=== PATIENT | female | born 2000 ===

== ENCOUNTER 2020-01-29 02:24 | Inpatient (IN) | payer OTHER ==
[2020-01-29] MEDS ORDERED: Sodium Chloride 0.9% 10 ML Syringe FLUSH PRN (22:13)
[2020-01-29] MEDS ORDERED: Nalbuphine 10 MG/1 ML Vial IVPUSH PRN (22:13)
[2020-01-29] MEDS ORDERED: Carboprost Tromethamine 250 MCG/1 ML Amp IM PRN (22:13)
[2020-01-29] MEDS ORDERED: Water For Irrigation,Sterile 1,000 ML Container IRR PRN (22:13)
[2020-01-29] MEDS ORDERED: Terbutaline 1 MG/ML SDV SUBCUT PRN (22:13)
[2020-01-29] MEDS ORDERED: Misoprostol 200 MCG Tab PO PRN (22:13)
[2020-01-29] MEDS ORDERED: Sodium Chloride 0.9% 2.5 ML Syringe FLUSH PRN (22:13)
[2020-01-29] MEDS ORDERED: Misoprostol 25 MCG (1/4 of 100 MCG) Tab VAG PRN (22:13)
[2020-01-29] MEDS ORDERED: Tranexamic Acid 1,000 MG in Sodium Chloride 0.9% 100 ML IV PRN (22:13)
[2020-01-29] MEDS ORDERED: Methylergonovine 0.2 MG/1 ML Amp IM PRN (22:13)
[2020-01-29] MEDS ORDERED: Lidocaine 1% 50 ML MDV INJECT PRN (22:13)
[2020-01-29] MEDS ORDERED: Sodium Chloride 0.9% 10 ML SDV IV PRN (22:13)
[2020-01-29] MEDS ORDERED: Oxytocin/0.9 % Sodium Chloride 30 UNIT/500 ML BAG IV SCH ×2 (22:15)
[2020-01-30] MEDS: Misoprostol 25 MCG (1/4 of 100 MCG) Tab VAG PRN ×2 (04:10→10:21)
[2020-01-30] MEDS: Butorphanol 1 MG/ML SDV IVPUSH PRN ×2 (08:51→13:44)
[2020-01-30] MEDS: Lactated Ringers 1,000 ML IV SCH ×2 (13:53→15:20)
[2020-01-30] MEDS ORDERED: fentaNYL 100 MCG/2 ML SDV ONE (14:06)
[2020-01-30] MEDS ORDERED: Ropivacaine HCl/PF 100 ML ONE (14:06)
--- NOTE | 2020-01-30 14:28 | PCM.PREANE ---
Preanesthetic Assessment - Anesthesia/Transfusion/Family Hx Anesthesia History: No Prior Anesthesia Family History of Anesthesia Reaction: No - Physical Assessment NPO Status Date: 01/30/20 NPO Status Time: 13:30 Height: 1.57 m Weight: 72.575 kg ASA Class: 1 - Lab Values: Laboratory Last Values WBC 14.37 K/uL (4.0-11.0) H 01/29/20 22:35 RBC 3.79 M/uL (4.30-5.90) L 01/29/20 22:35 Hgb 12.2 g/dL (12.0-16.0) 01/29/20 22:35 Hct 36.7 % (36.0-46.0) 01/29/20 22:35 MCV 96.8 fL (80.0-98.0) 01/29/20 22:35 MCH 32.2 pg (27.0-32.0) H 01/29/20 22:35 MCHC 33.2 g/dL (31.0-37.0) 01/29/20 22:35 RDW Std Deviation 46.9 fl (28.0-62.0) 01/29/20 22:35 RDW Coeff of Devante 13 % (11.0-15.0) 01/29/20 22:35 Plt Count 245 K/uL (150-400) 01/29/20 22:35 MPV 10.70 fL (7.40-12.00) 01/29/20 22:35 Nucleated RBC % 0.0 /100WBC 01/29/20 22:35 Nucleated RBCs # 0 K/uL 01/29/20 22:35 Blood Type A NEGATIVE 01/29/20 22:35 Antibody Screen NEGATIVE 01/29/20 22:35 - Allergies Allergies/Adverse Reactions: Allergies Allergy/AdvReac Type Severity Reaction Status Date / Time No Known Allergies Allergy Verified 01/29/20 22:22 - Acknowledgements Anesthesia Type Planned: Epidural Pt an Appropriate Candidate for the Planned Anesthesia: Yes Alternatives and Risks of Anesthesia Discussed w Pt/Guardian: Yes Pt/Guardian Understands and Agrees with Anesthesia Plan: Yes PreAnesthesia Questionnaire Psychiatric History: Reports: Anxiety - SUBSTANCE USE Smoking Status *Q: Former Smoker Recreational Drug Use History: No - HOME MEDS Home Medications: Home Meds Doxylamine Succinate [Unisom] PRN 01/29/20 [History] Vits #93/Iron Fum/FA [ Formula Tablet] 25 mg PO 01/29/20 [ History] - CURRENT (IN HOUSE) MEDS Current Meds: Current Medications Butorphanol Tartrate (Stadol) 1 mg IVPUSH Q1H PRN PRN Reason: Pain Last Admin: 01/30/20 13:44 Dose: 1 mg Carboprost Tromethamine (Hemabate Ds) 250 mcg IM ASDIRECTED PRN PRN Reason: Post Hemorrhage Lactated Ringer's (Ringers, Lactated) 1,000 mls @ 150 mls/hr IV ASDIRECTED [facility]OT[facility] Last Admin: 01/30/20 13:53 Dose: 999 mls/hr Oxytocin/Sodium Chloride (Oxytocin 30 Unit/500 Ml-Ns) 30 unit in 500 mls @ 999 mls/hr IV TITRATE [facility] Oxytocin/Sodium Chloride (Oxytocin 30 Unit/500 Ml-Ns) 30 unit in 500 mls @ 2 mls/hr IV TITRATE [facility]; Protocol Tranexamic Acid 1,000 mg/ (Sodium Chloride) 110 mls @ 660 mls/hr IV ONETIME PRN PRN Reason: Bleeding Lidocaine HCl (Xylocaine 1%) 50 ml INJECT ONETIME PRN PRN Reason: Laceration repair Methylergonovine Maleate (Methergine) 0.2 mg IM ASDIRECTED PRN PRN Reason: Post Hemorrhage Misoprostol (Cytotec) 200 mcg PO ONETIME PRN PRN Reason: Post Hemorrhage Misoprostol (Cytotec) 25 mcg VAG ONETIME PRN PRN Reason: Cervical Ripening Last Admin: 01/29/20 23:21 Dose: 25 mcg Misoprostol (Cytotec) 25 mcg VAG Q4H PRN PRN Reason: Cervical Ripening Last Admin: 01/30/20 10:21 Dose: 25 mcg Nalbuphine HCl (Nubain) 10 mg IVPUSH Q1H PRN PRN Reason: Pain (severe 7-10) Sodium Chloride (Saline Flush) 10 ml FLUSH ASDIRECTED PRN PRN Reason: Keep Vein Open Sodium Chloride (Saline Flush) 2.5 ml FLUSH ASDIRECTED PRN PRN Reason: Keep Vein Open Sodium Chloride (Normal Saline) 10 ml IV ASDIRECTED PRN PRN Reason: IV Use Sterile Water (Sterile Water For Irrigation) 1,000 ml IRR ASDIRECTED PRN PRN Reason: delivery Terbutaline Sulfate (Brethine) 0.25 mg SUBCUT ASDIRECTED PRN PRN Reason: Tacysystole Discontinued Medications Fentanyl (Sublimaze) Confirm Administered Dose 100 mcg .ROUTE .STK-MED ONE Stop: 01/30/20 14:07 Ropivacaine (Naropin 0.2%) Confirm Administered Dose 100 mls @ as directed .ROUTE .STK-MED ONE Stop: 01/30/20 14:07
--- NOTE | 2020-01-30 14:32 | PCM.PRNOTE ---
- Free Text/Narrative Note: Anes Note Patient requests epidural for L&D> Sitting position, sterile technique, midline approach. Level L3-L4 Chloraprep scrub to lumbar area. Sterile fenestrated drape applied. Epidural space easily achieved single attempt with ease using PAUL technique. PAUL at 3 cm. Cath threaded 5 cm with ease. Cath secured at 9 cm at skin using sterile clear adhesive dressing. Test 1415 3 cc 1.5% lido with epi negative. 1418 Load 10 cc 0.2% ropivicaine with 1 mcg cc fentanyl in slow divided doses. 1421 Pump started with 90 cc same solution. Rate is 8 cc hr with 6 cc q 20 min prn bolus. Carter well. Time with patient [id number]. Martinez Grady ALUM OPERATOR
[2020-01-30] MEDS ORDERED: Acetaminophen 500 MG Tab ONE (20:28)
[2020-01-30] MEDS: Ampicillin 2 GM AdvVial IV ONE (20:33)
[2020-01-30] MEDS: Sodium Chloride 0.9% 100 ML ONE (20:33)
[2020-01-30] MEDS ORDERED: Acetaminophen 500 MG Tab PO PRN (20:40)
[2020-01-30] MEDS ORDERED: Ampicillin 2 GM in Sodium Chloride 0.9% 100 ML IV SCH (21:00)
[2020-01-31] MEDS ORDERED: fentaNYL 100 MCG/2 ML SDV ONE (00:37)
[2020-01-31] MEDS ORDERED: Ropivacaine HCl/PF 100 ML ONE (00:37)
--- NOTE | 2020-01-31 00:46 | PCM.PRNOTE ---
- Free Text/Narrative Note: Anes NOte Epidural infusion is complete. A new 100 cc bag of same solution was placed. Rate remains at 8 cc hr with 6 cc q 20 min prn bolus. Time with patient [id number] Martinez Grady CRNA
[2020-01-31] MEDS: Sodium Chloride 0.9% 100 ML ONE (02:25)
[2020-01-31] MEDS: Ampicillin 2 GM AdvVial IV ONE (02:25)
[2020-01-31] MEDS ORDERED: Ampicillin 2 GM AdvVial IV ONE (02:40)
[2020-01-31] MEDS ORDERED: Sodium Chloride 0.9% 100 ML ONE (02:40)
[2020-01-31] MEDS ORDERED: Docusate Sodium 100 MG Cap PO PRN (03:59)
[2020-01-31] MEDS ORDERED: oxyCODONE 5 MG Tab PO PRN (03:59)
[2020-01-31] MEDS ORDERED: Lanolin 100% Cream 7 GM Tube TOP PRN (03:59)
[2020-01-31] MEDS ORDERED: Acetaminophen 500 MG Tab PO PRN ×2 (03:59)
[2020-01-31] MEDS ORDERED: Ibuprofen 400 MG Tab PO PRN (03:59)
[2020-01-31] MEDS ORDERED: Benzocaine/Menthol 20%-0.5% Spray 78 GM Cannister TOP PRN (03:59)
[2020-01-31] MEDS ORDERED: Witch Hazel Medicated Pads 40/Jar TOP PRN (03:59)
[2020-01-31] MEDS ORDERED: Bisacodyl 10 MG Supp RECTAL PRN (03:59)
--- NOTE | 2020-01-31 04:08 | PCM.DEL ---
L & D Note - General Info Date of Service: 01/31/20 - Delivery Note Labor: Augmented by Oxytocin, Induced by Oxytocin Cervical Ripening Method: Balloon Device, Misoprostil Delivery Outcome: Livebirth Infant Delivery Method: Spontaneous Vaginal Delivery-Single Presentation: Left Occiput Anterior (KIMBERLY) Nuchal Cord: None Anesthesia Type: Epidural Anesthetic: Lidocaine (Xylocaine) 1% Plain Local Anesthetic Volume: 3cc Amniotic Fluid Description: Clear Episiotomy Type: None Laceration: Labial (Bilateral labial ) Suture type: Other Suture size: 3-0 (Monocryl) Placenta: Intact Cord: 3 Vessels Estimated Blood Loss: 300 Score 1 min: 7 Score 5 min: 9 Delivery Comments (Free Text/Narrative):: Live male delivered at 224am , 7/9 weight 3180g - General Info Date of Service: 01/31/20 - Patient Data Vitals - Most Recent: Last Vital Signs Temp 38.4 C H 01/31/20 03:03 Pulse Resp BP Pulse Ox Weight - Most Recent: 72.575 kg Lab Results Last 24 Hours: Laboratory Results - last 24 hr 01/31/20 Range/Units 02:55 Antibody Screen NEGATIVE Screen NEGATIVE (NEGATIVE) RhIG Candidate? YES Rhogam Indicated YES, BABY RH POS H Med Orders - Current: Current Medications Acetaminophen (Tylenol Extra Strength) 1,000 mg PO Q6H PRN PRN Reason: Fever Last Admin: 01/31/20 03:03 Dose: 1,000 mg Acetaminophen (Tylenol Extra Strength) 500 mg PO Q4H PRN PRN Reason: Pain Acetaminophen (Tylenol Extra Strength) 1,000 mg PO Q4H PRN PRN Reason: Pain Benzocaine/Menthol (Dermoplast Pain Relief 20%-0.5% [place]) 78 gm TOP ASDIRECTED PRN PRN Reason: Perineal Comfort Measure Bisacodyl (Dulcolax) 10 mg RECTAL ONETIME PRN PRN Reason: Constipation Butorphanol Tartrate (Stadol) 1 mg IVPUSH Q1H PRN PRN Reason: Pain Last Admin: 01/30/20 13:44 Dose: 1 mg Carboprost Tromethamine (Hemabate Ds) 250 mcg IM ASDIRECTED PRN PRN Reason: Post Hemorrhage Docusate Sodium (Colace) 100 mg PO BID PRN PRN Reason: Constipation Emollient Ointment (Lansinoh Hpa) 0 gm TOP ASDIRECTED PRN PRN Reason: Sore Nipples Lactated Ringer's (Ringers, Lactated) 1,000 mls @ 150 mls/hr IV ASDIRECTED TIMOTHY Last Admin: 01/30/20 15:20 Dose: 150 mls/hr Oxytocin/Sodium Chloride (Oxytocin 30 Unit/500 Ml-Ns) 30 unit in 500 mls @ 999 mls/hr IV TITRATE [facility] Last Admin: 01/31/20 03:18 Dose: 999 mls/hr Oxytocin/Sodium Chloride (Oxytocin 30 Unit/500 Ml-Ns) 30 unit in 500 mls @ 2 mls/hr IV TITRATE [facility]; Protocol Last Admin: 01/30/20 15:59 Dose: 2 munits/min, 2 mls/hr Tranexamic Acid 1,000 mg/ (Sodium Chloride) 110 mls @ 660 mls/hr IV ONETIME PRN PRN Reason: Bleeding Ampicillin Sodium 2 gm/ Sodium (Chloride) 100 mls @ 200 mls/hr IV Q6H [facility] Gentamicin Sulfate 80 mg/ (Sodium Chloride) 52 mls @ 100 mls/hr IV Q8H [facility] Ibuprofen (Motrin) 400 mg PO Q4H PRN PRN Reason: Pain Ibuprofen (Motrin) 800 mg PO Q6H PRN PRN Reason: Pain Lidocaine HCl (Xylocaine 1%) 50 ml INJECT ONETIME PRN PRN Reason: Laceration repair Methylergonovine Maleate (Methergine) 0.2 mg IM ASDIRECTED PRN PRN Reason: Post Hemorrhage Misoprostol (Cytotec) 200 mcg PO ONETIME PRN PRN Reason: Post Hemorrhage Misoprostol (Cytotec) 25 mcg VAG ONETIME PRN PRN Reason: Cervical Ripening Last Admin: 01/29/20 23:21 Dose: 25 mcg Misoprostol (Cytotec) 25 mcg VAG Q4H PRN PRN Reason: Cervical Ripening Last Admin: 01/30/20 10:21 Dose: 25 mcg Nalbuphine HCl (Nubain) 10 mg IVPUSH Q1H PRN PRN Reason: Pain (severe 7-10) Oxycodone HCl (Oxycodone) 5 mg PO Q2H PRN PRN Reason: Pain Sodium Chloride (Saline Flush) 10 ml FLUSH ASDIRECTED PRN PRN Reason: Keep Vein Open Sodium Chloride (Saline Flush) 2.5 ml FLUSH ASDIRECTED PRN PRN Reason: Keep Vein Open Sodium Chloride (Normal Saline) 10 ml IV ASDIRECTED PRN PRN Reason: IV Use Sterile Water (Sterile Water For Irrigation) 1,000 ml IRR ASDIRECTED PRN PRN Reason: delivery Terbutaline Sulfate (Brethine) 0.25 mg SUBCUT ASDIRECTED PRN PRN Reason: Tacysystole Witch Mounika (Tucks) 1 pad TOP ASDIRECTED PRN PRN Reason: comfort care Discontinued Medications Acetaminophen (Tylenol Extra Strength) Confirm Administered Dose 1,000 mg .ROUTE .STK-MED ONE Stop: 01/30/20 20:29 Last Admin: 01/30/20 20:37 Dose: 1,000 mg Ampicillin Sodium (Ampicillin) Confirm Administered Dose 2 gm IV .STK-MED ONE Stop: 01/30/20 20:28 Last Admin: 01/31/20 02:25 Dose: 2 gm Ampicillin Sodium (Ampicillin) Confirm Administered Dose 2 gm IV .STK-MED ONE Stop: 01/31/20 02:41 Fentanyl (Sublimaze) Confirm Administered Dose 100 mcg .ROUTE .STK-MED ONE Stop: 01/30/20 14:07 Fentanyl (Sublimaze) Confirm Administered Dose 100 mcg .ROUTE .STK-MED ONE Stop: 01/31/20 00:38 Ropivacaine (Naropin 0.2%) Confirm Administered Dose 100 mls @ as directed .ROUTE .STK-MED ONE Stop: 01/30/20 14:07 Sodium Chloride (Normal Saline) Confirm Administered Dose 100 mls @ as directed .ROUTE .STK-MED ONE Stop: 01/30/20 20:28 Last Admin: 01/31/20 02:25 Dose: 200 mls/hr Gentamicin Sulfate 100 mg/ (Sodium Chloride) 52.5 mls @ 100 mls/hr IV ONETIME ONE Stop: 01/30/20 21:21 Ropivacaine (Naropin 0.2%) Confirm Administered Dose 100 mls @ as directed .ROUTE .STK-MED ONE Stop: 01/31/20 00:38 Sodium Chloride (Normal Saline) Confirm Administered Dose 100 mls @ as directed .ROUTE .STK-MED ONE Stop: 01/31/20 02:41 - Problem List & Annotations (1) Vaginal delivery SNOMED Code(s): 151388869 Code(s): O80 - ENCOUNTER FOR FULL-TERM UNCOMPLICATED DELIVERY Status: Acute Current Visit: Yes - Problem List Review Problem List Initiated/Reviewed/Updated: Yes - My Orders Last 24 Hours: My Active Orders 01/30/20 20:40 Acetaminophen [Tylenol Extra Strength] 1,000 mg PO Q6H PRN 01/30/20 21:00 Ampicillin 2 gm Sodium Chloride 0.9% [Normal Saline] 100 ml IV Q6H 01/30/20 Breakfast Regular Diet [DIET] 01/31/20 02:55 ANTIBODY SCREEN (REYNALDO) [BBK] Routine SCREEN [BBK] Routine RH IMMUNE GLOBULIN [BBK] Routine RHOGAM, [RHIG WORKUP, ] [BBK] Routine 01/31/20 03:59 Acetaminophen [Tylenol Extra Strength] 1,000 mg PO Q4H PRN Acetaminophen [Tylenol Extra Strength] 500 mg PO Q4H PRN Benzocaine/Menthol [Dermoplast Pain Relief 20%-0.5% [place]] 78 gm TOP ASDIRECTED PRN Docusate Sodium [Colace] 100 mg PO BID PRN Ibuprofen [Motrin] 400 mg PO Q4H PRN Ibuprofen [Motrin] 800 mg PO Q6H PRN Lanolin [Lansinoh HPA] See Dose Instructions TOP ASDIRECTED PRN bisacodyL [Dulcolax] 10 mg RECTAL ONETIME PRN oxyCODONE 5 mg PO Q2H PRN witch Mounika [Tucks] 1 pad TOP ASDIRECTED PRN Resuscitation Status Routine 01/31/20 04:00 Patient Status [ADT] Routine May Shower [RC] ASDIRECTED Up ad Sejal [RC] ASDIRECTED Vital Signs [RC] PER UNIT ROUTINE Assess Lochia [WOMSER] Per Unit Routine Assess Uterine Involution [WOMSER] Per Unit Routine Peripheral IV Discontinue [OM.PC] Routine 01/31/20 05:00 Gentamicin 80 mg Sodium Chloride 0.9% [Normal Saline] 50 ml IV Q8H 01/31/20 18:00 CBC WITH AUTO DIFF [HEME] Routine - Assessment Assessment:: 19yo P1 s/p
--- NOTE | 2020-01-31 07:37 | PCM48HPAN ---
Post Anesthesia Note - EVALUATION WITHIN 48HRS OF ANESTHETIC Vital Signs in Normal Range: Yes Patient Participated in Evaluation: Yes Respiratory Function Stable: Yes Airway Patent: Yes Cardiovascular Function Stable: Yes Hydration Status Stable: Yes Pain Control Satisfactory: Yes Nausea and Vomiting Control Satisfactory: Yes Mental Status Recovered: Yes Vital Signs: Last Vital Signs Temp 37.1 C 01/31/20 06:05 Pulse Resp BP Pulse Ox
[2020-01-31] MEDS: Ampicillin 2 GM in Sodium Chloride 0.9% 100 ML IV SCH ×3 (09:29→21:11)
--- NOTE | 2020-01-31 09:45 | PCM.PNPP ---
- General Info Date of Service: 01/31/20 Subjective Update: 19yo P1 s/p PPD0 . denies any complains tolerating diet , , minimal lochia Functional Status: Reports: Pain Controlled, Tolerating Diet, Ambulating, Urinating - Review of Systems General: Reports: No Symptoms HEENT: Reports: No Symptoms Pulmonary: Reports: No Symptoms Cardiovascular: Reports: No Symptoms Gastrointestinal: Reports: No Symptoms Genitourinary: Reports: No Symptoms Musculoskeletal: Reports: No Symptoms Skin: Reports: No Symptoms Neurological: Reports: No Symptoms Psychiatric: Reports: No Symptoms - General Info Date of Service: 01/31/20 - Patient Data Vital Signs - Most Recent: Last Vital Signs Temp 36.4 C 01/31/20 07:35 Pulse 72 01/31/20 07:35 Resp 14 01/31/20 07:35 BP 125/69 01/31/20 07:35 Pulse Ox 96 01/31/20 07:35 Weight - Most Recent: 72.575 kg Lab Results - Last 24 Hours: Laboratory Results - last 24 hr 01/31/20 Range/Units 02:55 Antibody Screen NEGATIVE Screen NEGATIVE (NEGATIVE) RhIG Candidate? YES Rhogam Indicated YES, BABY RH POS H Med Orders - Current: Current Medications Acetaminophen (Tylenol Extra Strength) 1,000 mg PO Q6H PRN PRN Reason: Fever Last Admin: 01/31/20 03:03 Dose: 1,000 mg Acetaminophen (Tylenol Extra Strength) 500 mg PO Q4H PRN PRN Reason: Pain Acetaminophen (Tylenol Extra Strength) 1,000 mg PO Q4H PRN PRN Reason: Pain Last Admin: 01/31/20 08:15 Dose: 1,000 mg Benzocaine/Menthol (Dermoplast Pain Relief 20%-0.5% [place]) 78 gm TOP ASDIRECTED PRN PRN Reason: Perineal Comfort Measure Bisacodyl (Dulcolax) 10 mg RECTAL ONETIME PRN PRN Reason: Constipation Butorphanol Tartrate (Stadol) 1 mg IVPUSH Q1H PRN PRN Reason: Pain Last Admin: 01/30/20 13:44 Dose: 1 mg Carboprost Tromethamine (Hemabate Ds) 250 mcg IM ASDIRECTED PRN PRN Reason: Post Hemorrhage Docusate Sodium (Colace) 100 mg PO BID PRN PRN Reason: Constipation Emollient Ointment (Lansinoh Hpa) 0 gm TOP ASDIRECTED PRN PRN Reason: Sore Nipples Lactated Ringer's (Ringers, Lactated) 1,000 mls @ 150 mls/hr IV ASDIRECTED [facility] Last Admin: 01/30/20 15:20 Dose: 150 mls/hr Oxytocin/Sodium Chloride (Oxytocin 30 Unit/500 Ml-Ns) 30 unit in 500 mls @ 999 mls/hr IV TITRATE [facility] Last Admin: 01/31/20 03:18 Dose: 999 mls/hr Oxytocin/Sodium Chloride (Oxytocin 30 Unit/500 Ml-Ns) 30 unit in 500 mls @ 2 mls/hr IV TITRATE [facility]; Protocol Last Admin: 01/30/20 15:59 Dose: 2 munits/min, 2 mls/hr Tranexamic Acid 1,000 mg/ (Sodium Chloride) 110 mls @ 660 mls/hr IV ONETIME PRN PRN Reason: Bleeding Gentamicin Sulfate 80 mg/ (Sodium Chloride) 52 mls @ 100 mls/hr IV Q8H [facility] Last Admin: 01/31/20 05:55 Dose: 100 mls/hr Ampicillin Sodium 2 gm/ Sodium (Chloride) 100 mls @ 200 mls/hr IV Q6H [facility] Last Admin: 01/31/20 09:29 Dose: 200 mls/hr Ibuprofen (Motrin) 400 mg PO Q4H PRN PRN Reason: Pain Ibuprofen (Motrin) 800 mg PO Q6H PRN PRN Reason: Pain Lidocaine HCl (Xylocaine 1%) 50 ml INJECT ONETIME PRN PRN Reason: Laceration repair Methylergonovine Maleate (Methergine) 0.2 mg IM ASDIRECTED PRN PRN Reason: Post Hemorrhage Misoprostol (Cytotec) 200 mcg PO ONETIME PRN PRN Reason: Post Hemorrhage Misoprostol (Cytotec) 25 mcg VAG ONETIME PRN PRN Reason: Cervical Ripening Last Admin: 01/29/20 23:21 Dose: 25 mcg Misoprostol (Cytotec) 25 mcg VAG Q4H PRN PRN Reason: Cervical Ripening Last Admin: 01/30/20 10:21 Dose: 25 mcg Nalbuphine HCl (Nubain) 10 mg IVPUSH Q1H PRN PRN Reason: Pain (severe 7-10) Oxycodone HCl (Oxycodone) 5 mg PO Q2H PRN PRN Reason: Pain Sodium Chloride (Saline Flush) 10 ml FLUSH ASDIRECTED PRN PRN Reason: Keep Vein Open Sodium Chloride (Saline Flush) 2.5 ml FLUSH ASDIRECTED PRN PRN Reason: Keep Vein Open Sodium Chloride (Normal Saline) 10 ml IV ASDIRECTED PRN PRN Reason: IV Use Sterile Water (Sterile Water For Irrigation) 1,000 ml IRR ASDIRECTED PRN PRN Reason: delivery Terbutaline Sulfate (Brethine) 0.25 mg SUBCUT ASDIRECTED PRN PRN Reason: Tacysystole Witch Mounika (Tucks) 1 pad TOP ASDIRECTED PRN PRN Reason: comfort care Discontinued Medications Acetaminophen (Tylenol Extra Strength) Confirm Administered Dose 1,000 mg .ROUTE .STK-MED ONE Stop: 01/30/20 20:29 Last Admin: 01/30/20 20:37 Dose: 1,000 mg Ampicillin Sodium (Ampicillin) Confirm Administered Dose 2 gm IV .STK-MED ONE Stop: 01/30/20 20:28 Last Admin: 01/31/20 02:25 Dose: 2 gm Ampicillin Sodium (Ampicillin) Confirm Administered Dose 2 gm IV .STK-MED ONE Stop: 01/31/20 02:41 Fentanyl (Sublimaze) Confirm Administered Dose 100 mcg .ROUTE .STK-MED ONE Stop: 01/30/20 14:07 Fentanyl (Sublimaze) Confirm Administered Dose 100 mcg .ROUTE .STK-MED ONE Stop: 01/31/20 00:38 Ropivacaine (Naropin 0.2%) Confirm Administered Dose 100 mls @ as directed .ROUTE .STK-MED ONE Stop: 01/30/20 14:07 Sodium Chloride (Normal Saline) Confirm Administered Dose 100 mls @ as directed .ROUTE .STK-MED ONE Stop: 01/30/20 20:28 Last Admin: 01/31/20 02:25 Dose: 200 mls/hr Ampicillin Sodium 2 gm/ Sodium (Chloride) 100 mls @ 200 mls/hr IV Q6H [facility] Gentamicin Sulfate 100 mg/ (Sodium Chloride) 52.5 mls @ 100 mls/hr IV ONETIME ONE Stop: 01/30/20 21:21 Last Admin: 03/14/20 21:55 Dose: 100 mls/hr Ropivacaine (Naropin 0.2%) Confirm Administered Dose 100 mls @ as directed .ROUTE .STK-MED ONE Stop: 01/31/20 00:38 Sodium Chloride (Normal Saline) Confirm Administered Dose 100 mls @ as directed .ROUTE .STK-MED ONE Stop: 01/31/20 02:41 - Interaction Support Person: - Recovery Exam Fundal Tone: Firm Fundal Level: 1 Fingerbreadths Below Umbilicus Fundal Placement: Midline Lochia Amount: Small Lochia Color: Rubra/Red Perineum Description: Intact, Minimal Bruising/Swelling Episiotomy/Laceration: Approximated Bladder Status: Voiding Urinary Elimination: Voided - Exam General: Alert HEENT: Pupils Equal Neck: Supple Lungs: Clear to Auscultation Cardiovascular: Regular Rate, Regular Rhythm GI/Abdominal Exam: Normal Bowel Sounds Extremities: Normal Inspection Neurological: No New Focal Deficit Psy/Mental Status: Alert - Problem List & Annotations (1) Vaginal delivery SNOMED Code(s): 334723107 Code(s): O80 - ENCOUNTER FOR FULL-TERM UNCOMPLICATED DELIVERY Status: Acute Current Visit: Yes - Problem List Review Problem List Initiated/Reviewed/Updated: Yes - My Orders Last 24 Hours: My Active Orders 01/30/20 20:40 Acetaminophen [Tylenol Extra Strength] 1,000 mg PO Q6H PRN 01/31/20 02:55 ANTIBODY SCREEN (REYNALDO) [BBK] Routine SCREEN [BBK] Routine RH IMMUNE GLOBULIN [BBK] Routine RHOGAM, [RHIG WORKUP, ] [BBK] Routine 01/31/20 03:59 Acetaminophen [Tylenol Extra Strength] 1,000 mg PO Q4H PRN Acetaminophen [Tylenol Extra Strength] 500 mg PO Q4H PRN Benzocaine/Menthol [Dermoplast Pain Relief 20%-0.5% [place]] 78 gm TOP ASDIRECTED PRN Docusate Sodium [Colace] 100 mg PO BID PRN Ibuprofen [Motrin] 400 mg PO Q4H PRN Ibuprofen [Motrin] 800 mg PO Q6H PRN Lanolin [Lansinoh HPA] See Dose Instructions TOP ASDIRECTED PRN bisacodyL [Dulcolax] 10 mg RECTAL ONETIME PRN oxyCODONE 5 mg PO Q2H PRN witch Mounika [Tucks] 1 pad TOP ASDIRECTED PRN Resuscitation Status Routine 01/31/20 04:00 Patient Status [ADT] Routine May Shower [RC] ASDIRECTED Up ad Sejal [RC] ASDIRECTED Assess Lochia [WOMSER] Per Unit Routine Assess Uterine Involution [WOMSER] Per Unit Routine Peripheral IV Discontinue [OM.PC] Routine 01/31/20 05:00 Gentamicin 80 mg Sodium Chloride 0.9% [Normal Saline] 50 ml IV Q8H 01/31/20 09:00 Ampicillin 2 gm Sodium Chloride 0.9% [Normal Saline] 100 ml IV Q6H 01/31/20 18:00 CBC WITH AUTO DIFF [HEME] Routine - Assessment Assessment:: 19yo P1 s/p PPD0 , Normal lochia , RH negative , recieved rhogam - Plan Plan:: Routine Discharge home tomorrow AM
--- NOTE | 2020-01-31 15:23 | OR ---
SURGEON: DAHIANA DOWNING DATE OF PROCEDURE: 01/31/2020 PREOPERATIVE DIAGNOSIS: A 19-year-old G1, P0, at 40 weeks and 1 day, admitted for induction of labor secondary to postdates. Rh negative POSTOPERATIVE DIAGNOSIS: A 19-year-old G1, P0, at 40 weeks and 1 day, admitted for induction of labor secondary to postdates.Rh negative PROCEDURES: Normal spontaneous vaginal delivery Repair of bilateral labial laceration. ESTIMATED BLOOD LOSS: 300. IV FLUIDS: Pitocin running. ANESTHESIA: Epidural with local anesthesia. NOTES AND FINDINGS: A live male delivered at 2:24 a.m. score was 7 and 9, weight is 3180 g. BRIEF HISTORY ABOUT THE PATIENT: She is a 19-year-old G1, P0, at 40 weeks , who desired elective induction of labor. DESCRIPTION OF PROCEDURE: Induction of labor was started with Cytotec. She received 3 doses of Cytotec after which she got the balloon. After the balloon was out, she became about 6 cm dilated. She was AROM'd. Pitocin was started. The patient made change and she became fully dilated. When she was fully dilated, she was encouraged to push. With good pushing effort, she delivered the head subsequently by the anterior and posterior shoulder. The body of the was delivered without any difficulty and the cord was clamped and cut. The placenta was delivered via controlled cord traction. The perineum was inspected. Bilateral labial laceration was noted, which was repaired with 3-0 Monocryl, and the perineum was noted to be normal. Lochia was noted afterwards. The patient was left in Labor and Delivery room in stable condition. ALTON JEROME /[id number] AMANDA
[2020-01-31] MEDS: Ibuprofen 800 MG Tab PO PRN ×2 (15:48→22:57)
--- NOTE | 2020-01-31 19:45 | PCM.SN ---
- Free Text/Narrative Note: Patient informed of elevated WBC , she will need to continue IV antibiotics No fever in 8 hrs VSS- wnl Exam: PelVic - Normal lochia , no uterine tenderness Plan Continue Ampicillin and gentamicin Repeat WBC count in AM
[2020-02-01] MEDS: Ampicillin 2 GM in Sodium Chloride 0.9% 100 ML IV SCH ×2 (03:15→08:32)
--- NOTE | 2020-02-01 08:29 | PCM.PNPP ---
- General Info Date of Service: 02/01/20 Subjective Update: 19yo P1 s/p PPD1 . denies any complains tolerating diet , , minimal lochia WBC trending down Functional Status: Reports: Pain Controlled, Tolerating Diet, Ambulating, Urinating - Review of Systems General: Reports: No Symptoms HEENT: Reports: No Symptoms Pulmonary: Reports: No Symptoms Cardiovascular: Reports: No Symptoms Gastrointestinal: Reports: No Symptoms Genitourinary: Reports: No Symptoms Musculoskeletal: Reports: No Symptoms Skin: Reports: No Symptoms Neurological: Reports: No Symptoms Psychiatric: Reports: No Symptoms - General Info Date of Service: 02/01/20 - Patient Data Vital Signs - Most Recent: Last Vital Signs Temp 36.3 C 02/01/20 07:22 Pulse 58 L 02/01/20 07:22 Resp 16 02/01/20 07:22 BP 130/59 L 02/01/20 07:22 Pulse Ox 97 02/01/20 07:22 Weight - Most Recent: 72.575 kg I&O - Last 24 Hours: Intake & Output 01/31/20 02/01/20 02/01/20 22:59 06:59 14:59 Intake Total 2 Balance 2 Lab Results - Last 24 Hours: Laboratory Results - last 24 hr 01/31/20 01/31/20 02/01/20 Range/Units 02:55 18:14 07:25 WBC 27.26 H 20.40 H (4.0-11.0) K/uL RBC 3.52 L 3.19 L (4.30-5.90) M/uL Hgb 11.2 L 10.2 L (12.0-16.0) g/dL Hct 34.1 L 31.1 L (36.0-46.0) % MCV 96.9 97.5 (80.0-98.0) fL MCH 31.8 32.0 (27.0-32.0) pg MCHC 32.8 32.8 (31.0-37.0) g/dL RDW Std Deviation 47.6 48.8 (28.0-62.0) fl RDW Coeff of Devante 14 14 (11.0-15.0) % Plt Count 264 213 (150-400) K/uL MPV 10.70 10.60 (7.40-12.00) fL Neut % (Auto) 85.7 H (48.0-80.0) % Lymph % (Auto) 7.4 L (16.0-40.0) % [place] % (Auto) 6.5 (0.0-15.0) % Eos % (Auto) 0.3 (0.0-7.0) % Baso % (Auto) 0.1 (0.0-1.5) % Neut # (Auto) 23.4 H (1.4-5.7) K/uL Lymph # (Auto) 2.0 (0.6-2.4) K/uL [place] # (Auto) 1.8 H (0.0-0.8) K/uL Eos # (Auto) 0.1 (0.0-0.7) K/uL Baso # (Auto) 0.0 (0.0-0.1) K/uL Neutrophils % (Manual) 84 H (48.0-80.0) % Lymphocytes % (Manual) 11 L (16.0-40.0) % Monocytes % (Manual) 5 (0.0-15.0) % Nucleated RBC % 0.0 0.0 /100WBC Absolute Seg Neuts 17.1 H (1.4-5.7) Lymphocytes # (Manual) 2.2 (0.6-2.4) Monocytes # (Manual) 1.0 H (0.0-0.8) Nucleated RBCs # 0 K/uL Antibody Screen NEGATIVE Screen NEGATIVE (NEGATIVE) RhIG Candidate? YES Rhogam Indicated YES, BABY RH POS H Med Orders - Current: Current Medications Acetaminophen (Tylenol Extra Strength) 1,000 mg PO Q6H PRN PRN Reason: Fever Last Admin: 01/31/20 03:03 Dose: 1,000 mg Acetaminophen (Tylenol Extra Strength) 500 mg PO Q4H PRN PRN Reason: Pain Acetaminophen (Tylenol Extra Strength) 1,000 mg PO Q4H PRN PRN Reason: Pain Last Admin: 01/31/20 08:15 Dose: 1,000 mg Benzocaine/Menthol (Dermoplast Pain Relief 20%-0.5% Gold [place]) 78 gm TOP ASDIRECTED PRN PRN Reason: Perineal Comfort Measure Bisacodyl (Dulcolax) 10 mg RECTAL ONETIME PRN PRN Reason: Constipation Butorphanol Tartrate (Stadol) 1 mg IVPUSH Q1H PRN PRN Reason: Pain Last Admin: 01/30/20 13:44 Dose: 1 mg Carboprost Tromethamine (Hemabate Ds) 250 mcg IM ASDIRECTED PRN PRN Reason: Post Hemorrhage Docusate Sodium (Colace) 100 mg PO BID PRN PRN Reason: Constipation Last Admin: 01/31/20 11:20 Dose: 100 mg Emollient Ointment (Lansinoh Hpa) 0 gm TOP ASDIRECTED PRN PRN Reason: Sore Nipples Lactated Ringer's (Ringers, Lactated) 1,000 mls @ 150 mls/hr IV ASDIRECTED TIMOTHY Last Admin: 01/30/20 15:20 Dose: 150 mls/hr Oxytocin/Sodium Chloride (Oxytocin 30 Unit/500 Ml-Ns) 30 unit in 500 mls @ 999 mls/hr IV TITRATE [facility] Last Admin: 01/31/20 03:18 Dose: 999 mls/hr Oxytocin/Sodium Chloride (Oxytocin 30 Unit/500 Ml-Ns) 30 unit in 500 mls @ 2 mls/hr IV TITRATE [facility]; Protocol Last Admin: 01/30/20 15:59 Dose: 2 munits/min, 2 mls/hr Tranexamic Acid 1,000 mg/ (Sodium Chloride) 110 mls @ 660 mls/hr IV ONETIME PRN PRN Reason: Bleeding Gentamicin Sulfate 80 mg/ (Sodium Chloride) 52 mls @ 100 mls/hr IV Q8H [facility] Last Admin: 02/01/20 05:05 Dose: 100 mls/hr Ampicillin Sodium 2 gm/ Sodium (Chloride) 100 mls @ 200 mls/hr IV Q6H TIMOTHY Last Admin: 02/01/20 03:15 Dose: 200 mls/hr Ibuprofen (Motrin) 400 mg PO Q4H PRN PRN Reason: Pain Ibuprofen (Motrin) 800 mg PO Q6H PRN PRN Reason: Pain Last Admin: 01/31/20 22:57 Dose: 800 mg Lidocaine HCl (Xylocaine 1%) 50 ml INJECT ONETIME PRN PRN Reason: Laceration repair Methylergonovine Maleate (Methergine) 0.2 mg IM ASDIRECTED PRN PRN Reason: Post Hemorrhage Misoprostol (Cytotec) 200 mcg PO ONETIME PRN PRN Reason: Post Hemorrhage Misoprostol (Cytotec) 25 mcg VAG ONETIME PRN PRN Reason: Cervical Ripening Last Admin: 01/29/20 23:21 Dose: 25 mcg Misoprostol (Cytotec) 25 mcg VAG Q4H PRN PRN Reason: Cervical Ripening Last Admin: 01/30/20 10:21 Dose: 25 mcg Nalbuphine HCl (Nubain) 10 mg IVPUSH Q1H PRN PRN Reason: Pain (severe 7-10) Oxycodone HCl (Oxycodone) 5 mg PO Q2H PRN PRN Reason: Pain Sodium Chloride (Saline Flush) 10 ml FLUSH ASDIRECTED PRN PRN Reason: Keep Vein Open Sodium Chloride (Saline Flush) 2.5 ml FLUSH ASDIRECTED PRN PRN Reason: Keep Vein Open Sodium Chloride (Normal Saline) 10 ml IV ASDIRECTED PRN PRN Reason: IV Use Sterile Water (Sterile Water For Irrigation) 1,000 ml IRR ASDIRECTED PRN PRN Reason: delivery Terbutaline Sulfate (Brethine) 0.25 mg SUBCUT ASDIRECTED PRN PRN Reason: Tacysystole Witch Mounika (Tucks) 1 pad TOP ASDIRECTED PRN PRN Reason: comfort care Discontinued Medications Acetaminophen (Tylenol Extra Strength) Confirm Administered Dose 1,000 mg .ROUTE .STK-MED ONE Stop: 01/30/20 20:29 Last Admin: 01/30/20 20:37 Dose: 1,000 mg Ampicillin Sodium (Ampicillin) Confirm Administered Dose 2 gm IV .STK-MED ONE Stop: 01/30/20 20:28 Last Admin: 01/31/20 02:25 Dose: 2 gm Ampicillin Sodium (Ampicillin) Confirm Administered Dose 2 gm IV .STK-MED ONE Stop: 01/31/20 02:41 Fentanyl (Sublimaze) Confirm Administered Dose 100 mcg .ROUTE .STK-MED ONE Stop: 01/30/20 14:07 Fentanyl (Sublimaze) Confirm Administered Dose 100 mcg .ROUTE .STK-MED ONE Stop: 01/31/20 00:38 Ropivacaine (Naropin 0.2%) Confirm Administered Dose 100 mls @ as directed .ROUTE .STK-MED ONE Stop: 01/30/20 14:07 Sodium Chloride (Normal Saline) Confirm Administered Dose 100 mls @ as directed .ROUTE .STK-MED ONE Stop: 01/30/20 20:28 Last Admin: 01/31/20 02:25 Dose: 200 mls/hr Ampicillin Sodium 2 gm/ Sodium (Chloride) 100 mls @ 200 mls/hr IV Q6H TIMOTHY Gentamicin Sulfate 100 mg/ (Sodium Chloride) 52.5 mls @ 100 mls/hr IV ONETIME ONE Stop: 01/30/20 21:21 Last Admin: 01/30/20 21:55 Dose: 100 mls/hr Ropivacaine (Naropin 0.2%) Confirm Administered Dose 100 mls @ as directed .ROUTE .STK-MED ONE Stop: 01/31/20 00:38 Sodium Chloride (Normal Saline) Confirm Administered Dose 100 mls @ as directed .ROUTE .STK-MED ONE Stop: 01/31/20 02:41 - Infant Interaction Support Person: - Recovery Exam Fundal Tone: Firm Fundal Level: 1 Fingerbreadths Below Umbilicus Fundal Placement: Midline Lochia Amount: Scant Lochia Color: Rubra/Red Perineum Description: Other (see below) Other Perinuem Description: Bilateral labial tear Episiotomy/Laceration: Approximated Bladder Status: Voiding Urinary Elimination: Voided - Exam General: Alert HEENT: Pupils Equal Neck: Supple Lungs: Clear to Auscultation Cardiovascular: Regular Rate, Regular Rhythm GI/Abdominal Exam: Normal Bowel Sounds Extremities: Normal Inspection Neurological: No New Focal Deficit - Problem List & Annotations (1) Vaginal delivery SNOMED Code(s): 752861736 Code(s): O80 - ENCOUNTER FOR FULL-TERM UNCOMPLICATED DELIVERY Status: Acute Current Visit: Yes - Problem List Review Problem List Initiated/Reviewed/Updated: Yes - My Orders Last 24 Hours: My Active Orders 01/31/20 09:00 Ampicillin 2 gm Sodium Chloride 0.9% [Normal Saline] 100 ml IV Q6H 02/01/20 03:00 Ready for Discharge [RC] PER UNIT ROUTINE - Assessment Assessment:: 19yo P1 s/p PPD1 , Normal lochia , RH negative , recieved rhogam - Plan Plan:: Routine Discharge home today Will discharge with Augmentin 875mg bid X 5 days
== END 2020-02-01 11:19 | disposition home or self-care (01) | DRG 807 ==
LOC: MW.OB 02:24 → OBSVTOIN 01-31 02:24 → MW.OB 01-31 05:00
PROVIDERS: ADMIT Obstetrics & Gynecology; ATTEND Obstetrics & Gynecology
PROC: 10E0XZZ Delivery of Products of Conception, External Approach (ICD-10-PCS; principal; 2020-01-31)
PROC: 3E033VJ Introduction of Other Hormone into Peripheral Vein, Percutaneous Approach (ICD-10-PCS; 2020-01-31)
PROC: 3E0P7VZ Introduction of Hormone into Female Reproductive, Via Natural or Artificial Opening (ICD-10-PCS; 2020-01-31)
PROC: 0U7C7ZZ Dilation of Cervix, Via Natural or Artificial Opening (ICD-10-PCS; 2020-01-31)
PROC: 10H07YZ Insertion of Other Device into Products of Conception, Via Natural or Artificial Opening (ICD-10-PCS; 2020-01-31)
PROC: 0UQMXZZ Repair Vulva, External Approach (ICD-10-PCS; 2020-01-31)
PROC: 3E0R3BZ Introduction of Anesthetic Agent into Spinal Canal, Percutaneous Approach (ICD-10-PCS; 2020-01-31)
PROC: 00HU33Z Insertion of Infusion Device into Spinal Canal, Percutaneous Approach (ICD-10-PCS; 2020-01-31)
DX: O48.0 Post-term pregnancy (principal); O70.0 First degree perineal laceration during delivery; Z37.0 Single live birth; Z79.899 Other long term (current) drug therapy; Z3A.40 40 weeks gestation of pregnancy; Z87.891 Personal history of nicotine dependence
CPT/HCPCS: 01967; 36415; 51702; 59025; 59409; 85007; 85025; 85027; 85460; 86592; 86593; 86850; 86900; 86901; A9270-GY; J0290; J0595; J1580; J2590; J2792; J7050; J7120

== ENCOUNTER 2023-07-14 23:07 | Inpatient (IN) | payer BC ==
[2023-07-14] MEDS ORDERED: ePHEDrine 50 MG/ML SDV IVPUSH PRN ×2 (23:29)
[2023-07-14] MEDS ORDERED: Ropivacaine HCl/PF 400 MG in Premix Bag 1 BAG EPIDUR SCH (23:30)
[2023-07-15] MEDS ORDERED: Lidocaine 1% 50 ML MDV INJECT PRN (02:39)
[2023-07-15] MEDS ORDERED: Sodium Chloride 0.9% 20 ML SDV IV PRN (02:39)
[2023-07-15] MEDS ORDERED: Sodium Chloride 0.9% 10 ML Syringe FLUSH PRN (02:39)
[2023-07-15] MEDS ORDERED: Methylergonovine 0.2 MG/1 ML Amp IM PRN (02:39)
[2023-07-15] MEDS ORDERED: Water For Irrigation,Sterile 1,000 ML Container IRR PRN (02:39)
[2023-07-15] MEDS ORDERED: Sodium Chloride 0.9% 2.5 ML Syringe FLUSH PRN (02:39)
[2023-07-15] MEDS ORDERED: Misoprostol 200 MCG Tab PO PRN (02:39)
[2023-07-15] MEDS ORDERED: Carboprost Tromethamine 250 MCG/1 mL Vial IM PRN (02:39)
[2023-07-15] MEDS ORDERED: Tranexamic Acid IN NACL,ISO-OS 1,000 MG in Premix Bag 1 BAG IV PRN ×2 (02:39)
[2023-07-15] MEDS ORDERED: Nalbuphine 10 MG/0.5 ML Syringe IVPUSH ONE (02:42)
[2023-07-15] MEDS ORDERED: Oxytocin/0.9 % Sodium Chloride 30 UNIT/500 ML BAG IV SCH ×2 (02:45→13:30)
[2023-07-15] MEDS: Lactated Ringers 1,000 ML IV SCH ×4 (03:00→11:33)
[2023-07-15 03:25] LABS: HEMATOCRIT 35.6 % (36.0-46.0); HEMOGLOBIN 12.5 g/dL (12.0-16.0); MEAN CORPUSCULAR HEMOGLOBIN 33.1 pg (27.0-32.0); MEAN CORPUSCULAR HGB CONC 35.1 g/dL (31.0-37.0); MEAN CORPUSCULAR VOLUME 94.2 fL (80.0-98.0); MEAN PLATELET VOLUME 10.1 fL (7.40-12.00); RED BLOOD CELL COUNT 3.78 M/uL (4.30-5.90); WHITE BLOOD CELL COUNT,WBC 19.94 K/uL (4.0-11.0)
[2023-07-15] MEDS: Phenylephrine HCl 0.5 MG/5 ML AMP IVPUSH PRN ×2 (07:31→07:36)
[2023-07-15] MEDS ORDERED: Acetaminophen 500 MG Tab ONE (13:15)
[2023-07-15] MEDS ORDERED: Acetaminophen 500 MG Tab PO ONE (13:22)
[2023-07-15] MEDS ORDERED: Terbutaline 1 MG/ML SDV SUBCUT PRN (13:22)
[2023-07-15] MEDS ORDERED: Docusate Sodium 100 MG Cap PO PRN (16:58)
[2023-07-15] MEDS ORDERED: Benzocaine/Menthol 20%-0.5% Spray 78 GM Cannister TOP PRN (16:58)
[2023-07-15] MEDS ORDERED: Witch Hazel Medicated Pads 40/Jar TOP PRN (16:58)
[2023-07-15] MEDS ORDERED: Acetaminophen 500 MG Tab PO PRN (16:58)
[2023-07-15] MEDS ORDERED: Lanolin 100% Cream 7 GM Tube TOP PRN (16:58)
[2023-07-15] MEDS ORDERED: oxyCODONE 5 MG Tab PO PRN (16:58)
[2023-07-15] MEDS ORDERED: Ibuprofen 400 MG Tab PO PRN (16:58)
[2023-07-15] MEDS ORDERED: Bisacodyl 10 MG Supp RECTAL PRN (16:58)
[2023-07-15 17:24] LABS: PH,UMBILICAL ARTERIAL 7.22 (7.18-7.38); PH,UMBILICAL VENOUS 7.326 (7.25-7.45)
[2023-07-16] MEDS: Ibuprofen 800 MG Tab PO PRN (05:41)
[2023-07-16] MEDS: Acetaminophen 500 MG Tab PO PRN ×3 (05:43→19:44)
[2023-07-16 06:08] LABS: HEMATOCRIT 34.3 % (36.0-46.0); HEMOGLOBIN 11.6 g/dL (12.0-16.0)
[2023-07-17] MEDS: Ibuprofen 800 MG Tab PO PRN (00:22)
[2023-07-17] MEDS: Acetaminophen 500 MG Tab PO PRN (09:36)
== END 2023-07-17 10:32 | disposition home or self-care (01) | DRG 560 ==
LOC: MW.OBCHECK 23:07 → MW.OB 23:09 → MW.OBCHECK 07-15 00:57 → MW.OB 07-15 00:57 → OBSVTOIN 07-15 16:41 → MW.OB 07-16 01:36 → MW.MS 07-16 17:25
PROVIDERS: ADMIT Obstetrics & Gynecology; ATTEND Obstetrics & Gynecology
PROC: 10E0XZZ Delivery of Products of Conception, External Approach (ICD-10-PCS; principal; 2023-07-15)
PROC: 3E0R3BZ Introduction of Anesthetic Agent into Spinal Canal, Percutaneous Approach (ICD-10-PCS; 2023-07-15)
PROC: 00HU33Z Insertion of Infusion Device into Spinal Canal, Percutaneous Approach (ICD-10-PCS; 2023-07-15)
PROC: 3E033VJ Introduction of Other Hormone into Peripheral Vein, Percutaneous Approach (ICD-10-PCS; 2023-07-15)
PROC: 3E0334Z Introduction of Serum, Toxoid and Vaccine into Peripheral Vein, Percutaneous Approach (ICD-10-PCS; 2023-07-15)
DX: O48.0 Post-term pregnancy (principal); Z3A.40 40 weeks gestation of pregnancy; O26.893 Other specified pregnancy related conditions, third trimester; Z67.11 Type A blood, Rh negative; O69.81X0 Labor and delivery complicated by cord around neck, without compression, not applicable or unspecified; Z37.0 Single live birth
CPT/HCPCS: 01967; 36415; 51702; 59025; 59409; 82803; 85014; 85018; 85027; 85460; 86592; 86850; 86900; 86901; A9270-GY; J2300; J2370; J2590; J2790; J7120